=== PATIENT | female | born 1980 | race Caucasian/White ===

== ENCOUNTER 2016-05-16 13:28 | Emergency (ER) | payer BC ==
[~2016-05-16] VITALS: Ht 167.6 cm; Wt 70.0 kg
[2016-05-16 13:29] VITALS: BP 126/80; PULSE 88; RESP 16; TEMP 98.8; O2SAT 95
--- NOTE | 2016-05-16 13:54 | PD ---
HPI Chief Complaint: GI Complaint Time Seen by Provider: 13:39 Travel History International Travel<30 days: No Contact w/Intl Traveler<30days: No Traveled to known affect area: No History of Present Illness HPI This is a 36-year-old female who presents to the emergency department with a history of hiatal hernia who reports 1 week of intermittent epigastric abdominal pain that radiates to the upper chest associated with some nausea, moderate severity associated with a lot of belching. She denies any vomiting. She has had a little bit feverish. She says she's had chest discomfort in the setting of her hiatal hernia in the past but never has had epigastric discomfort like she does now. She had an endoscopy 1 year ago and afterwards she made some lifestyle changes including dietary changes and she stopped smoking and since then she's been doing well. [facility] Past Medical History Narrative Medical history of hiatal hernia Medical History: Denies Significant Hx ?: Not Social History Tobacco Use: No (quit after diagnosed with hiatal hernia) Allergies-Medications (Allergen,Severity, Reaction): Coded Allergies: No Known Allergies (Unverified , 05/16/16) Review of Systems Except as stated in HPI: all other systems reviewed are Neg Physical Exam Narrative GENERAL:Well appearing, no acute distress SKIN: Warm and dry. HEAD: Atraumatic. Normocephalic. EYES: Pupils equal and round. No injection or drainage. ENT: Moist mucous membranes NECK: Trachea midline. CARDIOVASCULAR: Regular rate and rhythm. No murmur appreciated. RESPIRATORY: Clear to auscultation. Breath sounds equal bilaterally. GASTROINTESTINAL: Abdomen soft, mildly tender to palpation in the epigastrium with no rebound or guarding. MUSCULOSKELETAL: No obvious deformities. NEUROLOGICAL: Awake and alert. No obvious cranial nerve deficits. Moving all extremities. PSYCHIATRIC: Anxious appearing. Data Data Last Documented VS Vital Signs Date Time Temp Pulse Resp B/P Pulse Ox O2 Delivery O2 Flow Rate FiO2 05/16/16 13:29 98.8 88 16 126/80 95 Room Air Orders Al-Mag Hy-Si 40-40-4 Mg/Ml Liq (Mag-Al P (05/16/16 14:00) Lidocaine 2% Viscous (Xylocaine 2% Visco (05/16/16 14:00) Nplbw-Mfuffs-Cgjjqc-Pb Liq ( Liq (05/16/16 14:00) MDM Medical Decision Making Medical Screen Exam Complete: Yes Emergency Medical Condition: Yes Interpretation(s) Afebrile, no tachycardia, normotensive Differential Diagnosis Gastritis, GERD, peptic ulcer disease, pancreatitis, cholecystitis, cholelithiasis Narrative Course This is a 36-year-old female who presents to the emergency department with epigastric discomfort. She has a history of a hiatal hernia which she's been treating with dietary changes in lifestyle adjustments. Over the past several days she's been down with her sister in [place] because her sisters has been was recently diagnosed with melanoma. This is been stressful for her and now she's had SYMPTOMS. She is tender in the epigastrium. Her symptoms are classic for GERD. She was given a GI cocktail and her symptoms improved significantly. Patient will be discharged with an antacid and asked to follow- up with a primary care physician when she gets home. Diagnosis Primary Impression: GERD (gastroesophageal reflux disease) Qualified Code: K21.9 - Gastroesophageal reflux disease without esophagitis Patient Instructions: General Instructions Additional Instructions: If you develop severe or worsening abdominal pain, fever>100.4, persistent vomiting or inability to eat or drink return to the emergency department immediately. Follow up with your primary care physician in 1-2 days for a check-up. Med/Other Pt SpecificInfo: Prescription(s) given Scripts Ranitidine 150 Mg Pbc846 Mg PO BID #60 TAB Ref 0 Prov:Layla Ramos MD 05/16/16 Disposition: 01 DISCHARGE HOME Condition: Stable Layla Ramos MD May 16, 2016 13:54
[2016-05-16 14:00] VITALS: BP 104/76; PULSE 66; RESP 16; O2SAT 98
[2016-05-16] MEDS ORDERED: LIDOCAINE VISCOUS 2% SOLN 15 ML UDC PO ONE (14:00)
[2016-05-16] MEDS ORDERED: ALUMINUM/MAGNESIUM/SIMETH 30 ML CUP PO ONE (14:00)
[2016-05-16] MEDS ORDERED: ATROPINE/SCOPOLAM/HYOSCYAM/PB ELIXIR 10 ML CUP PO ONE (14:00)
[2016-05-16] MEDS ORDERED: RANI150T PO (14:46)
[2016-05-16 15:00] VITALS: BP 109/72; PULSE 64; RESP 16; O2SAT 99
== END 2016-05-16 15:18 | disposition home or self-care (01) ==
LOC: NEPC 13:28
DX: K21.9 Gastro-esophageal reflux disease without esophagitis (principal); R07.89 Other chest pain; K44.9 Diaphragmatic hernia without obstruction or gangrene; R11.0 Nausea; R14.2 Eructation
CPT/HCPCS: 99283